=== PATIENT | male | born 1940 | race Caucasian/White ===

== ENCOUNTER 2016-06-10 06:12 | Inpatient (IN) | payer BC, OTHER ==
[2016-05-16 13:59] VITALS: BMI 39.0
--- NOTE | 2016-05-16 14:37 | PAT Medication Instructions ---
Service Date May 16, 2016. Current Home Medication List Allopurinol (Zyloprim), 100 MG PO QAM Aspirin (Aspir-81), 1 TAB PO QAM Atorvastatin (Lipitor), 20 MG PO QAM Calcipotriene-Betamethasone Di (Calcipotriene/Betamethaso 0.005-0.064 %), 1 DOSE TOP HS Furosemide (Lasix), 20 MG PO QAM Glimepiride (Glimepiride), 1 TAB PO QAM Oxycodone/Acetaminophen 10MG/325MG (Oxycodone/Acetaminophen 10MG/325MG), 1 TAB PO Q6H PRN for Pain Polyethylene Glycol 3350 (Bulk (Polyethylene Glycol 3350), 17 GM PO QAM Terazosin Hcl (Hytrin), 1 MG PO HS Medication Instructions For Your Scheduled Surgery - Hold the following medications 24 hours prior to surgery: Calcipotriene-Betamethasone Di (Calcipotriene/Betamethaso 0.005-0.064 %), 1 DOSE TOP HS - Hold the following medications the morning of surgery: Furosemide (Lasix), 20 MG PO QAM Glimepiride (Glimepiride), 1 TAB PO QAM Polyethylene Glycol 3350 (Bulk (Polyethylene Glycol 3350), 17 GM PO QAM - Take the following medications the morning of surgery with a sip of water OTHERWISE NOTHING TO EAT OR DRINK AFTER MIDNIGHT: Allopurinol (Zyloprim), 100 MG PO QAM Aspirin (Aspir-81), 1 TAB PO QAM Atorvastatin (Lipitor), 20 MG PO QAM Oxycodone/Acetaminophen 10MG/325MG (Oxycodone/Acetaminophen 10MG/325MG), 1 TAB PO Q6H PRN for Pain (may take if needed up to 4 hours prior to surgery) - Take the following medications as scheduled the night before surgery: Terazosin Hcl (Hytrin), 1 MG PO HS Oxycodone/Acetaminophen 10MG/325MG (Oxycodone/Acetaminophen 10MG/325MG), 1 TAB PO Q6H PRN for Pain If you have any questions please call us at [phone] or [phone] or [phone]
--- NOTE | 2016-05-16 15:09 | DIAGNOSTIC IMAGING REPORT ---
TWO VIEW CHEST CLINICAL HISTORY: Preoperative examination. FINDINGS: PA and lateral chest radiographs are obtained. No prior studies are available for comparison at the time of dictation. The PA view is degraded by patient rotation. The heart is enlarged and there is atherosclerotic calcification of the thoracic aorta. The pulmonary vasculature is noncongested. There is elevation of left hemidiaphragm with bibasilar atelectasis. Nonspecific interstitial thickening is noted and may be chronic. There is no airspace consolidation typical for pneumonia or pleural effusion. There is no pneumothorax. The skeletal structures are osteopenic. Degenerative change and mild scoliosis are noted in the thoracic spine. IMPRESSION: Cardiomegaly and chronic appearing parenchymal changes as above. There is no active disease in the chest. Electronically signed by: Papo Ott M.D. 05/16/2016 3:08 PM Dictated Date/Time: 05/16/2016 3:06 PM
[2016-05-16 15:59] LABS: BASO % 0.4 %; BASO ABS # 0.04 K/uL (0-0.2); COMPLETE YES; EOS % 1.2 %; HEMATOCRIT 44.7 % (42-52); IG% 0.3 %; LYMPH % 19.6 %; MEAN CELL VOLUME 98.9 fL (80-100); MEAN CORPUSCULAR HEMOGLOBIN 33.2 pg (25-34); MEAN CORPUSCULAR HGB CONC 33.6 g/dl (32-36); MEAN PLATELET VOLUME 10.2 fL (7.4-10.4); MONO % 8.5 %; PLATELET COUNT 190 K/uL (130-400); RED BLOOD COUNT 4.52 M/uL (4.7-6.1); WHITE BLOOD COUNT 9.18 K/uL (4.8-10.8)
[2016-05-16 16:03] LABS: URINE APPEARANCE CLEAR (CLEAR); URINE BILIRUBIN NEG (NEG); URINE COLOR YELLOW; URINE NITRITE NEG (NEG); URINE SPECIFIC GRAVITY 1.017 (1.000-1.030); UROBILINOGEN NEG (NEG); ZZUR CULT IF INDIC CLEAN CATCH NO
[2016-05-16 16:06] LABS: MANUAL MICROSCOPIC REQUIRED? NO; REVIEW REQ? NO
[2016-05-16 16:39] LABS: BUN/CREATININE RATIO 23.1 (10-20); CALCIUM 9.4 mg/dl (8.5-10.1); CREATININE 1.9 mg/dl (0.60-1.40); POTASSIUM 4.4 mmol/L (3.5-5.1)
[2016-05-17 06:27] LABS: ESTIMATED AVERAGE GLUCOSE 157 mg/dl; HA1C FLAG Normal (Normal)
--- NOTE | 2016-06-07 08:44 | HISTORY & PHYSICAL EXAMINATION ---
DATE OF ADMISSION: 06/10/2016 CHIEF COMPLAINT: Left knee pain. HISTORY OF PRESENT ILLNESS: Mr. Arthur is a 76-year-old male with a 6-month history of left knee pain. He rates his pain a 9/10. He has pain with his daily activities. He has limited standing and walking tolerance. Pain is worse with weightbearing. The patient has had injections, knee arthroscopy in the past. He is taking Percocet with minimal relief. He is currently using a walker to ambulate. He has failed conservative treatment and is now scheduled for left knee replacement. PAST MEDICAL HISTORY: Hypertension, hypercholesterolemia, diabetes, and history of PE status post lumbar surgery. PAST SURGICAL HISTORY: Lumbar fusion L4-L5 and L5-S1 and left knee arthroscopy, heel surgery, carpal tunnel release. SOCIAL HISTORY: The patient drinks alcohol. He smokes 1 cigar per day. He lives in a 2-story home but is functional on 1 floor. He is and retired. FAMILY HISTORY: Negative for DVT. MEDICATIONS: Aspirin 81 mg, atorvastatin 20 mg, Taclonex, Lasix 20 mg, Amaryl 2 mg, metolazone 2.5 mg, oxycodone/acetaminophen 10/325 p.r.n., MiraLax and Hytrin 1 mg. ALLERGIES: LATEX, TAPE. REVIEW OF SYSTEMS: See HPI. Ten other systems reviewed, all negative. PHYSICAL EXAMINATION: VITAL SIGNS: Height 5 foot 10, weight 274 pounds, BMI is 39. GENERAL: This is a well-developed, well-nourished male who is alert and oriented x3. Mood and affect are appropriate. HEAD, EYES, EARS, NOSE, AND THROAT: Normocephalic, atraumatic. Mucous membranes are moist and intact. NECK: Supple without lymphadenopathy. HEART: Regular rate and rhythm without murmurs, rubs or gallops. LUNGS: Clear to auscultation without wheezes or rhonchi. ABDOMEN: Soft and nontender. Bowel sounds are equal and active. EXTREMITIES: No ecchymosis, redness or warmth. He has mild psoriasis noted on the lower extremity. He has a varus deformity. Range of motion is from 3 to 110 degrees with no laxity. He is neurovascularly intact with +5/5 strength. X-RAY EXAMINATION: AP and lateral views show joint space narrowing and osteophyte formation. IMPRESSION: Degenerative joint disease left knee. PLAN: The patient will be admitted for a left total knee arthroplasty. We will plan on considering Xarelto for DVT prophylaxis due to his previous history. His PCP is Dr. Eber Plunkett. He will have [facility] for home physical therapy.
[2016-06-10] VITALS (9 sets, daily range): BP systolic 113–157; BP diastolic 68–89; PULSE 73–90; TEMP 36.4–36.8; O2SAT 90–94; Ht 177.8 cm; Wt 124.7 kg
[~2016-06-10] VITALS: Ht 177.8 cm; Wt 124.7 kg
[~2016-06-10 06:12] MED LIST: ACETAMINOPHEN 500 MG TAB PO SCH; ALLO100T PO; ASPI-232 PO; ATOR-22 PO; CALC0.02 TOP; CEFAZOLIN 3000 MG/65 ML D5W 65 ML IV SCH; CeleBREX 200 MG CAP PO SCH; DEXAMETHASONE 4 MG TAB PO SCH; FAMOTIDINE 20 MG TAB PO SCH; FURO-85 PO; GABAPENTIN 300 MG CAP PO SCH; GLIM2TAB2 PO; HYT/2 PO; LACTATED RINGER'S 1000ML 1,000 ML IV SCH; METOCLOPRAMIDE HCL 10 MG TAB PO SCH; OXYC-88 PO; OXYCODONE HCL 10 MG TABCR (OXYCONTIN) PO SCH; POLY1POW2 PO; POLYMYXIN B SULFATE 100,000 UNITS in NSS 100ML IR SCH; ROPIVACAINE 5MG/ML 30 ML 150 MG, BUPIVACAINE/EPINEPHR 0.5% MPF 30 ML, KETOROLAC TROMETH... INFIL SCH; VANCOMYCIN INJ 400 MG in NSS 100ML IR SCH
[2016-06-10] MEDS ORDERED: BUPIVACAINE 0.5 % 5 MG/1 ML PF 10ML VIAL ONE (06:29)
[2016-06-10] MEDS ORDERED: BUPIVACAINE 0.25% 30 ML VIAL ONE (06:29)
--- NOTE | 2016-06-10 06:45 | History & Physical Bridge Note ---
H&P Re-Evaluation Bridge Note: I have examined the patient, reviewed the History & Physical and in the interval since the performance of the History & Physical I have noted the following changes of clinical significance: No changes noted
[2016-06-10] MEDS ORDERED: MIDAZOLAM HCL 1 MG/ML 2ML VIAL ONE ×2 (07:05)
[2016-06-10] MEDS ORDERED: FENTANYL CITRATE INJ 50 MCG/1 ML 2 ML VIAL ONE (07:05)
[2016-06-10] MEDS ORDERED: EpHEDrine SULFATE 50MG/5ML SYR ONE (07:06)
[2016-06-10] MEDS ORDERED: PROPOFOL IV EMULSION 10 MG/ML 20 ML VIAL IV ONE (07:06)
[2016-06-10] MEDS ORDERED: LIDOCAINE HCL 2% 2 ML VIAL (20MG/ML) ONE (07:06)
[2016-06-10] MEDS ORDERED: PHENYLEPHRINE 100MCG/ML 5ML SYR ONE (07:06)
[2016-06-10] MEDS ORDERED: ORTHO JOINT ANESTHETIC ONE (07:18)
[2016-06-10] MEDS ORDERED: BUPIVACAINE/EPINEPHRINE 0.25% 1:200,000 30 ML VIAL ONE (07:18)
[2016-06-10] MEDS ORDERED: POVIDONE-IODINE OP SOLN 30 ML BTL ONE (07:18)
[2016-06-10] MEDS ORDERED: BACITRACIN 50000 UNIT VIAL ONE (07:19)
[2016-06-10] MEDS: TRANEXAMIC ACID INJ 1,000 MG in SODIUM CHLORIDE 0.9% 100ML 100 ML IV SCH ×2 (08:09→11:34)
[2016-06-10] MEDS ORDERED: ONDANSETRON INJ 2 MG/ML 2 ML VIAL IV PRN ×2 (09:15→09:45)
[2016-06-10] MEDS ORDERED: ATROPINE SULFATE 0.1 MG/ML 5ML SYR IV PRN (09:15)
[2016-06-10] MEDS ORDERED: HYDROmorphone INJ 2 MG/ML SYR/VIAL IV PRN (09:15)
[2016-06-10] MEDS ORDERED: PHENYLEPHRINE 100MCG/ML 5ML SYR IV PRN (09:15)
[2016-06-10] MEDS ORDERED: EpHEDrine SULFATE INJ 50 MG/ML AMP IV PRN (09:15)
--- NOTE | 2016-06-10 09:36 | [facility] Post Operative Brief Note ---
Immediate Operative Summary Operative Date Jun 10, 2016. Pre-Operative Diagnosis Left knee degenerative joint disease Post-Operative Diagnosis Left knee degenerative joint disease MORBID OBESITY BMI 40 Procedure(s) Performed Left total knee arthoplasty Surgeon Dr. Jc Overton Director Emergency Department Surgeon(s) Vipin Goodwin PA-C Estimated Blood Loss 75 cc Findings DJD Specimens A: Left knee bone and tissue Complication(s) None Disposition Recovery Room / PACU
[2016-06-10] MEDS ORDERED: KETOROLAC TROMETHAMINE 15 MG/ML VIAL IV. PRN (09:45)
[2016-06-10] MEDS ORDERED: ALUMINUM/MAGNESIUM/SIMETH (MAALOX MAX) 30 ML UDC PO PRN (09:45)
[2016-06-10] MEDS ORDERED: OXYCODONE HCL IR 5 MG TAB (IMMEDIATE RELEASE) PO PRN (09:45)
[2016-06-10] MEDS ORDERED: BISACODYL 10 MG SUPP PR PRN (09:45)
[2016-06-10] MEDS ORDERED: TRAMADOL HCL 50 MG TAB PO PRN (09:45)
[2016-06-10] MEDS ORDERED: ZOLPIDEM TARTRATE 5 MG TAB PO PRN (09:45)
[2016-06-10] MEDS ORDERED: METOCLOPRAMIDE HCL INJ 5 MG/ML 2 ML VIAL IV PRN (09:45)
[2016-06-10] MEDS ORDERED: DiphenhydrAMINE HCL 50 MG/ML VIAL IV PRN (09:45)
[2016-06-10] MEDS ORDERED: MoRPHine SULFATE 2 MG/ML CARP IV PRN (09:45)
[2016-06-10] MEDS ORDERED: MAGNESIUM HYDROXIDE SUSP 30 ML UDC PO PRN (09:45)
[2016-06-10] MEDS ORDERED: SOD PHOSPHATE/SOD BIPHOSPHATE ENEMA 132 ML BTL PR PRN (09:45)
[2016-06-10] MEDS ORDERED: PHARMACY GLYCEMIC MGMT CONSULT PRN (10:31)
[2016-06-10] MEDS ORDERED: GLUCAGON FOR INJ 1 MG VIAL SQ PRN (11:00)
[2016-06-10] MEDS ORDERED: GLUCOSE 40% GEL 15 GM TUBE PO PRN (11:00)
[2016-06-10] MEDS ORDERED: GLUCOSE 10 TABS/TUBE PO PRN (11:00)
[2016-06-10] MEDS ORDERED: DEXTROSE 50% 50 ML SYR IV PRN (11:00)
--- NOTE | 2016-06-10 11:02 | Pharmacy Progress Note ---
Glycemic Control Intl Consult Date of Service Jun 10, 2016. Scope Glycemic Pharmacist consulted by Dr Overton on 06/10/16 for glycemic control and to write orders per [facility] inpatient glycemic control protocol Objective Weight (Kilograms): 124.70 Accuchecks BSG (last 24hrs): Test 06/10/16 06:45 Bedside Glucose 135 mg/dl (70-99) Recent Pertinent Medications Outpatient Anti-diabetic Regimen: * Amaryl 2mg PO daily * A1c = 7.1 % 05/2016 The patient is currently receiving: * Basal insulin: Lantus [] units every [] hours * Correctional Insulin: NovoLog Correction per scale AC/HS Goal Range: Low [] mg/dL - High [] mg/dL Correction Factor: [] mg/dL/unit * Prandial insulin: Per carb ratio of 1 unit per [] grams CHO consumed * Oral Agents: Amaryl 2mg PO daily Risk Factors for Insulin Resistance: * Steroids: Dexamethasone 8mg PO x1 pre-operatively today * Infection: cefazolin danis-operatively * IVF: LR --> NSS * Recent Surgery: POD #[address] Overton - Left TKA * Diet: T2DM Assessment & Plan ASSESSMENT: * ADA & AACE recommend a goal blood sugar range 140-180 mg/dl for the majority of critically ill & non-critically ill patients. However, more stringent targets may be selected in individual cases. 06/10/16 * 76 year old type 2 diabetic admitted postoperatively. * one time dose of dexamethasone given prior to surgery * may see elevated BSG x24-48h post op for this reason * currently, ordered glimepiride daily * hold this as it can cause hypoglycemia - resume on discharge * Begin NovoLog for BSG control postoperatively with both correction factor and carb ratio * both retro- and pro-active BSG control * utilize weight based dosing (a stress of ~1.5 has been used) * goal slightly lower than ADA recommendations as patient is post-operative and we want to minimize risk for infections * No need for basal insulin at this time, re-assess daily * A1c - current * add to discharge instructions PLAN FOR INPATIENT GLYCEMIC CONTROL: * Basal insulin: forgo at this time * Rapid acting insulin: * NovoLog AC and HS - Correction factor: 30mg/dL/unit - Carb ratio: 1 unit per 10 g of CHO consumed - Goal range: 100-140mg/dL * Oral medications: * hold glimepiride at this time * A1c - current * add to discharge instructions * Please note that the plan above was derived based on current level of insulin resistance and hospital stress. These recommendations are appropriate for inpatient admission only. Plan of care upon discharge will need to be reassessed to avoid potential outpatient hypo/hyperglycemia. Thank you.
--- NOTE | 2016-06-10 11:06 | DIAGNOSTIC IMAGING REPORT ---
Portable left knee 2 views CLINICAL HISTORY: Postop arthroplasty COMPARISON: None. DISCUSSION: There are postsurgical changes of a total left knee arthroplasty and patellar resurfacing. There is slight widening of the lateral joint compartment finding which is possibly positional. Clinical correlation in this regard is advocated. Follow-up radiography may be considered. There is an overlying surgical drain. IMPRESSION: 1. Postsurgical changes of a total left knee arthroplasty 2. No acute fractures 3. Asymmetric widening of the lateral joint compartment on the AP film. It is possible this is positional. Clinical correlation is advocated. Follow up radiography should be considered. Electronically signed by: Matthew Grant M.D. 06/10/2016 11:05 AM Dictated Date/Time: 06/10/2016 11:04 AM
--- NOTE | 2016-06-10 11:13 | Anesthesiology Progress Note ---
Anesthesia Post Op Note Date & Time Jun 10, 2016 at 11:13 Vital Signs Pain Intensity: 0 Vital Signs Past 12 Hours Date Time Temp Pulse Resp B/P Pulse Ox O2 Delivery O2 Flow Rate FiO2 06/10/16 11:00 83 16 131/76 94 Nasal Cannula 3 06/10/16 10:50 84 16 126/68 94 Nasal Cannula 3 06/10/16 10:40 89 16 129/79 94 Nasal Cannula 4 06/10/16 10:31 36.7 92 16 120/68 95 Nasal Cannula 4 06/10/16 06:55 36.7 90 18 157/89 90 Room Air Notes Mental Status: alert / awake / arousable, participated in evaluation Pt Amnestic to Procedure: Yes Nausea / Vomiting: adequately controlled Pain: adequately controlled Airway Patency, RR, SpO2: stable & adequate BP & HR: stable & adequate Hydration State: stable & adequate Anesthetic Complications: no major complications apparent
[2016-06-10] MEDS: INSULIN ASPART 100 UNITS/ML 3 ML PEN SC SCH ×3 (13:21→21:19)
[2016-06-10] MEDS: ACETAMINOPHEN 500 MG TAB PO SCH ×2 (13:22→21:20)
[2016-06-10] MEDS: SODIUM CHLORIDE 0.9% 1000ML 1,000 ML IV SCH ×2 (13:22→21:20)
[2016-06-10] MEDS: CEFAZOLIN IV 2,000 MG in DEXTROSE 5% 50ML 50 ML IV SCH ×2 (16:02→23:56)
--- NOTE | 2016-06-10 16:25 | OPERATIVE REPORT ---
DATE OF OPERATION: 06/10/2016 PREOPERATIVE DIAGNOSES: 1. Degenerative arthritis, left knee. 2. Morbid obesity, BMI of 40. POSTOPERATIVE DIAGNOSES: Same. PROCEDURE: Left total knee with patient matched implant. SURGEON: Dr. Zachary Overton. RN PATIENT SERVICES: ROYA Mayo. ANESTHESIA: Spinal. BLOOD LOSS: 75 mL. REPLACEMENT FLUIDS: 1500 mL crystalloid. DRAINS: Hemovac x2. CULTURES: None. COMPLICATIONS: None. COMPONENTS USED: [employer] Journey Knee System: Femur size 7, tibia size 7 x 9, and patella size 41. NOTE: ROYA Mayo was present and assisted throughout due to the complicated nature of this case. He helped with preparation and set up, he first assisted throughout, and he personally closed the capsule, subcutaneous and skin layers and applied the postoperative dressing. DESCRIPTION OF PROCEDURE: Following satisfactory spinal, the patient was supine. A tourniquet was placed on the lower extremity, but not inflated. The lower extremity was prepared with ChloraPrep and draped sterilely. Following a surgical time-out, a midline incision was made with a trivector approach. The knee showed grade 4 changes throughout, especially in the medial and patellofemoral compartments. The cruciate ligaments were excised. The patient matched femoral block was applied. Femoral distal rotation and resection were set and completed. The 4-in-1 block was used to finish preparation of the femur. The patient matched tibial block was applied. Tibial resection was completed. The patella was freehand cut. Soft tissue balancing was completed and a trial reduction showed good tensioning stability on the collateral ligaments, stable range of motion, and the patella tracked well. The trial components were removed. The capsule was prepared with the orthopedic cocktail and after irrigation, the components were cemented using Simplex G cement. A Betadine soak was performed for 5 minutes. When the cement had hardened, the Betadine was irrigated. Two drains were placed. The arthrotomy was closed with a running suture of 0 V-Loc and reinforced with #1 Vicryl. Subcutaneous tissues were closed with 1 Vicryl and 2-0 Vicryl. Skin was closed with a running subcuticular stitch of 3-0 V-Loc. Dermabond and a surface wound VAC were applied. The patient was returned to his bed in stable condition. I attest to the content of the Intraoperative Record and any orders documented therein. Any exceptio ns are noted below.
[2016-06-10] MEDS ORDERED: TRANEXAMIC ACID INJ 1,000 MG in SODIUM CHLORIDE 0.9% 100ML 100 ML IV SCH (16:30)
[2016-06-10] MEDS ORDERED: SENNA 8.6 MG TAB PO SCH (21:00)
[2016-06-10] MEDS: ASPIRIN 81 MG ECTAB PO SCH (21:04)
[2016-06-11] VITALS (9 sets, daily range): BP systolic 131–168; BP diastolic 66–85; PULSE 72–94; TEMP 36.4–36.8; O2SAT 86–95
[2016-06-11] MEDS: ACETAMINOPHEN 500 MG TAB PO SCH ×2 (06:00→13:30)
[2016-06-11 06:32] LABS: HEMATOCRIT 33.6 % (42-52); MEAN CELL VOLUME 96.6 fL (80-100); MEAN CORPUSCULAR HEMOGLOBIN 33.3 pg (25-34); MEAN CORPUSCULAR HGB CONC 34.5 g/dl (32-36); MEAN PLATELET VOLUME 9.8 fL (7.4-10.4); PLATELET COUNT 146 K/uL (130-400); RED BLOOD COUNT 3.48 M/uL (4.7-6.1); WHITE BLOOD COUNT 12.12 K/uL (4.8-10.8)
[2016-06-11 07:11] LABS: BUN/CREATININE RATIO 25.3 (10-20); CREATININE 1.8 mg/dl (0.60-1.40); POTASSIUM 4.7 mmol/L (3.5-5.1)
[2016-06-11] MEDS: SODIUM CHLORIDE 0.9% 1000ML 1,000 ML IV SCH (08:15)
--- NOTE | 2016-06-11 08:37 | Orthopedic Progress Note ---
Orthopedic Progress Note Date of Service Jun 11, 2016. Subjective Post OP Day: 1 Reports: feeling well, pain controlled w PO medications, Denies: calf pain, chest pain, light headedness, nausea / vomiting Objective calves soft nontender, N/V intact, dressing C/D/I, A&O x3, toes mobile, hemovac drainage (50 ml latest shift) Date Time Temp Pulse Resp B/P Pulse Ox O2 Delivery O2 Flow Rate FiO2 06/11/16 07:33 36.8 72 16 151/80 92 Nasal Cannula 2.0 06/11/16 07:15 Nasal Cannula 2.0 06/11/16 03:38 95 Nasal Cannula 2.0 06/11/16 03:35 36.7 81 16 131/66 86 Room Air 06/11/16 00:00 Room Air 06/10/16 23:12 36.8 73 16 113/68 92 Room Air 06/10/16 18:54 36.5 81 18 153/80 91 Room Air 06/10/16 16:00 Nasal Cannula 2.0 06/10/16 14:18 75 16 149/85 94 Nasal Cannula 2.0 06/10/16 13:20 36.5 81 18 151/83 93 Nasal Cannula 3.0 06/10/16 12:24 92 Nasal Cannula 3.0 06/10/16 12:17 77 16 151/76 92 Nasal Cannula 3.0 06/10/16 11:50 36.4 77 18 143/78 92 Nasal Cannula 3.0 06/10/16 11:20 36.5 86 12 137/83 93 Nasal Cannula 3.0 06/10/16 11:20 93 Nasal Cannula 3.0 06/10/16 11:20 93 Nasal Cannula 3.0 06/10/16 11:10 36.6 85 16 121/78 93 Nasal Cannula 3 06/10/16 11:00 83 16 131/76 94 Nasal Cannula 3 06/10/16 10:50 84 16 126/68 94 Nasal Cannula 3 06/10/16 10:40 89 16 129/79 94 Nasal Cannula 4 06/10/16 10:31 36.7 92 16 120/68 95 Nasal Cannula 4 Laboratory Results 24 Hours: Test 06/11/16 05:33 Hematocrit 33.6 % Hemoglobin 11.6 g/dL Assessment & Plan Assessment: POD 1 s/p Left TKA HTN Hypercholesterolemia DM h/o PE Plan: PT/OT Planning on Home with [facility] Possible dc to home today. Consider holding Nsaids with increased BUN/Creat Inhouse Planning Pain Management: Celebrex, Toradol, Morphine, PO Tylenol, Oxy IR DVT Prophylaxis: TEDs, SCDs, ASA Discharge Planning Discharge Planning: home with home health Pain Management: PO Tylenol, Oxy IR Therapy: Physical Therapy
[2016-06-11] MEDS: ASPIRIN 81 MG ECTAB PO SCH (08:50)
[2016-06-11] MEDS: INSULIN ASPART 100 UNITS/ML 3 ML PEN SC SCH ×2 (08:52→13:29)
[2016-06-11] MEDS ORDERED: MULTIVITAMIN TAB PO SCH (09:00)
[2016-06-11] MEDS ORDERED: PANTOprazole SOD 40 MG TAB PO SCH (09:00)
[2016-06-11] MEDS ORDERED: ALLOPURINOL 100 MG TAB PO SCH (09:00)
[2016-06-11] MEDS ORDERED: GLIMEPIRIDE 2 MG TAB PO SCH (09:00)
[2016-06-11] MEDS ORDERED: ATORVASTATIN 20 MG TAB PO SCH (09:00)
[2016-06-11] MEDS ORDERED: FUROSEMIDE 20 MG TAB PO SCH (09:00)
--- NOTE | 2016-06-11 11:53 | Discharge Instructions ---
Discharge Instructions Admission Reason for Admission: Left Knee Degenerative Arthritis Discharge Discharge Diagnosis / Problem: sp left TKA Discharge Goals Goal(s): Decrease discomfort, Improve function, Increase independence Activity Recommendations Activity Limitations: per Instructions/Follow-up section . Instructions / Follow-Up Instructions / Follow-Up ACTIVITY RECOMMENDATIONS: SELF CARE INSTRUCTIONS AFTER TOTAL KNEE REPLACEMENT A. You may need to continue a physical therapy program after discharge from the hospital. There are several options available to you. Your doctor will assist you in selecting the best one for you. 1. An out-patient facility 2 to 3 times a week for therapy or home therapy. 2. Continue working on all exercises taught to you in the hospital. Your goals should be to increase bending of your knee to 90 degrees and beyond and to fully straighten your knee. B. You may progress at your own pace from walking with a walker or crutches to a cane; then to no assistive devices. C. Make walking a part of your daily routine. Be up as much as comfortable with rest periods throughout the day. Rest with leg elevation is very important. Use the ice wrap frequently for the first 3-4 weeks. D. There are no restrictions on activities. You may ride in a car, shop, participate in manager purchasing and all social activities. E. Wear the long elastic stockings (GREGORY hose) 20 hours a day for 2 weeks after surgery. They can be removed several times a day for laundering and for a bath. F. You may shower, no tub baths until cleared by your doctor. SPECIAL CARE INSTRUCTIONS: VERY IMPORTANT TO READ AND REVIEW A. There are a few signs you need to watch for after you are home. Call [facility] if you notice any of the followin. Increased severe knee pain. Some pain is expected especially when you exercise. 2. Increased swelling in your leg or knee; pain or swelling of the calf muscle in either lower leg. 3. Any fluid drainage from the incision. 4. Shortness of breath or chest pain. B. Please call [facility] at if you have any concerns or questions about your operation or recovery. The doctor or his nurse will return your call promptly. C. You must take antibiotics before dental work, bladder, bowel or other surgery. Your doctor will provide you with a permanent care to carry describing this precaution. IMPORTANT: * REMEMBER TO TAKE ASPIRIN, 81 MG, TWICE DAILY FOR 4 WEEKS UNLESS OTHERWISE DIRECTED. THIS IS YOUR BLOOD THINNER. * HIGH RISK PATIENTS MAY BE PRESCRIBED A STRONGER BLOOD THINNER. THIS WILL BE PROVIDED AT DISCHARGE. * CALL IF INCREASED PAIN, REDNESS, DRAINAGE OR FEVER GREATER THAT 101. * WEAR GREGORY HOSE 20 HOURS PER DAY FOR 2 WEEKS. Prevena- This is a large suction dressing covering your incision. This will help pull any excess drainage from the wound and allow your incision to heal properly. You may shower with this if you can keep the unit outside of the shower. If any bleeding or leakage is noted please call your doctor's office. This will remain on your incision for 7 days and then should be removed. This can be done yourself or by the home nursing staff if applicable. The entire unit is disposable once removed. Once removed, keep incision clean and dry. If redness or drainage is noted, please call your surgeon. FOLLOW UP VISIT: If appointment is not already scheduled: Please call [facility] to make a follow-up appointment for 2 weeks after your surgery at . Current Hospital Diet Patient's current hospital diet: Diabetes Type 2 Diet Discharge Diet Recommended Diet: Regular Diet Procedures Procedures Performed: Left total knee arthoplasty Pending Studies Studies pending at discharge: no Laboratory Results Hemoglobin A1c Test 05/16/16 14:47 Range/Units Estimated Average Glucose 157 mg/dl Hemoglobin A1c 7.1 H 4.5-5.6 % Medical Emergencies . Who to Call and When: Medical Emergencies: If at any time you feel your situation is an emergency, please call 911 immediately. . Non-Emergent Contact Non-Emergency issues call your: Primary Care Provider . "Provider Documentation" section prepared by Jaylin Wilde. VTE Core Measure Inpt VTE Proph given/why not?: Other Anticoagulation, T.E.D. Stockings, SCD's [place] Drug Monitoring Program Search Results: patient reviewed within database, no issues identified
[2016-06-11] MEDS ORDERED: RXC5 PO (11:56)
[2016-06-11] MEDS ORDERED: CLB200 PO (11:56)
[2016-06-11] MEDS ORDERED: SNK PO (11:56)
[2016-06-11] MEDS ORDERED: ASPI-232 PO (11:56)
[2016-06-11] MEDS ORDERED: ACET-1138 PO (11:56)
--- NOTE | 2016-06-12 17:49 | DISCHARGE SUMMARY ---
DISCHARGE DIAGNOSIS: Degenerative joint disease, left knee. SECONDARY DIAGNOSES: Hypertension, hypercholesterolemia, diabetes mellitus, history of pulmonary embolism, status post lumbar surgery. CONSULTS: None. COMPLICATIONS: None. PROCEDURE: Left total knee arthroplasty performed by Dr. Zachary Overton on 06/10/2016. BRIEF HISTORY: As dictated in history and physical. HOSPITAL SUMMARY: The patient was admitted on the above-noted date and had the above-noted surgery performed which he tolerated well. On his first postoperative day, he was feeling well. Pain was controlled. He had no complaints. Calves were soft, nontender, neurovascularly intact. Dressings clean, dry and intact. Toes were mobile. Vital signs were stable. He was afebrile. Hemoglobin was 11.6 and he was started on physical therapy protocol and continued on DVT prophylaxis. Plans were for him to go home with [facility] services. In physical therapy, he had ambulated 400 feet and achieved 91 degrees of flexion. He was remaining stable and it was felt he could be discharged to home. For further review, please see chart. LAB AND X-RAY DATA: As per chart. DISCHARGE INSTRUCTIONS: The patient was discharged to home in satisfactory condition on 06/11/2016. DIET: Diabetic. ACTIVITY: Follow TKA instruction sheets and special care instructions as noted. Follow up with Dr. Zachary Overton in 2 weeks. The patient to call for appointment if one has not been made for you. DISCHARGE MEDICATIONS: Acetaminophen 1000 mg p.o. q. 8 hours, Celebrex 200 mg p.o. daily, oxycodone 5-10 mg p.o. q. 4 hours p.r.n., senna 17.2 mg p.o. at bedtime. Resume taking allopurinol 100 mg p.o. q.a.m., atorvastatin 20 mg p.o. q.a.m., calcipotriene and betamethasone 1 dose topically at bedtime, furosemide 20 mg p.o. q.a.m., glimepiride 2 mg p.o. q.a.m., MiraLax 17 g p.o. q.a.m., terazosin 1 mg p.o. at bedtime, aspirin 81 mg p.o. b.i.d. for 30 days. After 30 days, stop taking that tablet twice daily and resume the once daily dosing. Stop taking Percocet.
[2016-06-13] MEDS ORDERED: CeleBREX 200 MG CAP PO SCH (08:00)
== END 2016-06-11 18:00 | disposition home health service (06) | DRG 470 ==
LOC: ENRESERVDT → ENRESERVTM → C.ACU 06:12 → C.3E 09:40
PROVIDERS: ADMIT Orthopaedic Surgery; ATTEND Orthopaedic Surgery
PROC: 0SRD0J9 Replacement of Left Knee Joint with Synthetic Substitute, Cemented, Open Approach (ICD-10-PCS; principal; 2016-06-10 08:00)
DX: M17.12 Unilateral primary osteoarthritis, left knee (principal); Z68.41 Body mass index [BMI] 40.0-44.9, adult; E11.22 Type 2 diabetes mellitus with diabetic chronic kidney disease; E78.00 Pure hypercholesterolemia, unspecified; E66.01 Morbid (severe) obesity due to excess calories; M54.5 Low back pain; I12.9 Hypertensive chronic kidney disease with stage 1 through stage 4 chronic kidney disease, or unspecified chronic kidney disease; F17.290 Nicotine dependence, other tobacco product, uncomplicated; G47.33 Obstructive sleep apnea (adult) (pediatric); N18.9 Chronic kidney disease, unspecified; Z98.1 Arthrodesis status; Z79.84 Long term (current) use of oral hypoglycemic drugs; Z79.82 Long term (current) use of aspirin; Z86.711 Personal history of pulmonary embolism; Z79.899 Other long term (current) drug therapy; Z79.891 Long term (current) use of opiate analgesic